=== PATIENT | female | born 1970 | race Caucasian/White ===

== ENCOUNTER 2017-12-20 00:44 | Emergency (ER) | payer OTHER ==
[~2017-12-20] VITALS: Ht 162.6 cm; Wt 82.0 kg
[2017-12-20] MEDS ORDERED: IBUPROFEN 800MG TABLET PO ONE (04:00)
[2017-12-20 06:08] VITALS: BP 114/62
== END 2017-12-20 06:08 | disposition home or self-care (01) ==
LOC: ER 00:44
DX: S16.1XXA Strain of muscle, fascia and tendon at neck level, initial encounter (principal); S39.012A Strain of muscle, fascia and tendon of lower back, initial encounter; V43.52XA Car driver injured in collision with other type car in traffic accident, initial encounter; Y93.89 Activity, other specified; Y92.414 Local residential or business street as the place of occurrence of the external cause
CPT/HCPCS: 72125; 72131; 81025; 99284